=== PATIENT | female | born 1970 ===

== ENCOUNTER → 2024-06-09 10:20 | Outpatient (REF) | payer BC, SELFPAY | LOC: RAD 10:20 | PROVIDERS: ATTENDING PHYSICIAN Internal Medicine Cardiovascular Disease; FAMILY PHYSICIAN Family Medicine | DX: R73.03 Prediabetes (principal); R00.2 Palpitations; R94.39 Abnormal result of other cardiovascular function study; Z82.49 Family history of ischemic heart disease and other diseases of the circulatory system; I10 Essential (primary) hypertension | CPT/HCPCS: 75574; Q9967 ==

== ENCOUNTER 2025-10-10 17:39 | Emergency (ER) | payer BC, SELFPAY ==
[2025-10-10 17:50] VITALS: BP 144/96
[2025-10-10 18:39] LABS: ALT (SGPT) 26 U/L (0-35); AST (SGOT) 26 U/L (14-36); Albumin 4.8 g/dl (3.5-5.0); Alkaline Phosphatase 111 U/L (38-126); Blood Urea Nitrogen 13 mg/dl (7-17); Calcium 9.2 mg/dl (8.4-10.2); Carbon Dioxide 22 mmol/L (22-30); Chloride 107 mmol/L (98-107); Glucose 92 mg/dl (70-99); Lipase 155 U/L (23-300); Potassium 3.9 mmol/L (3.5-5.1); Sodium 137 mmol/L (135-145); Total Protein 7.8 g/dl (6.3-8.2); eGFR > 60.00
[2025-10-10 19:05] LABS: Troponin I 0.013 ng/ml
[2025-10-10 20:09] VITALS: BP 145/89
--- NOTE | 2025-10-10 20:17 | ED.GENMED ---
History of Present Illness
General
Chief Complaint: Chest Pain
Source: patient
Time Seen by Provider: 10/10/25 20:05
History of Present Illness
History of Present Illness:
This patient is a 55-year-old female who presents emergency department complaints of a 'tightness' in the left anterior chest that started this morning while she was at her desk at work. Is continued throughout the day, on and off, sometimes going
away completely, sometimes returning, and she was lasting seconds at a time now lasting minutes at a time. It got particular worse around 15 p.m. which prompted her visit here. She denies any pain at this time and states the last time she had it
was while she was in the waiting room. She denies fever, leg swelling, estrogen use, recent immobilization, recent trauma, history of DVT in her family members. The pain is not pleuritic in nature. She has very mild shortness of breath. She also
has chills and an occasional cough.
Past History
Past History
ED Past Medical History: HTN and Hypercholesterolemia
Social History
Tobacco: Non-smoker
Alcohol: Occasional
Drug: None
Living: alone
Employment: Employed
Phy Exam
Physical Exam
Physical Exam:
GENERAL: Alert , in no apparent distress
EYE: pupils equal and reactive
NECK: Supple, no significant adenopathy.
ENT: o/p clr, mmm.
CARDIAC: Regular rate and rhythm .
LUNGS: Clear breath sounds bilaterally, no acute respiratory distress, no wheezes/rales/rhonchi
ABDOMEN: Soft, without focal tenderness, no r/g, no cvat
NEUROLOGICAL: Alert and oriented, no focal neuro deficits
SKIN: Warm and dry, skin intact.
MUSCULOSKELETAL: No edema, well perfused.
PSYCH: Normal and appropriate interaction.
Scores
Heart Score for Chest Pain Patients
STEMI patient?: No
History: Slightly or Non-Suspicious
ECG: Normal
Age: >45 - <65 years
Risk Factors: 1 or 2 Risk Factors
Troponin: </= Normal Limit
Heart Score for Chest Pain Patients: 2
Heart Score Risk: 2.5% MACE over next 6 weeks
Course
Orders/Labs/Results
Orders:
Orders
10/10/25 17:40
Electrocardiogram (*1) Urgent
Reason for Study: Chest Pain
EKG- Treatment ONCE
10/10/25 18:17
Comprehensive Metabolic Panel Urgent
Lipase Urgent
Troponin I Urgent
10/10/25 20:39
Ketorolac [Toradol] 15 mg IV NOW STA
CR Chest - 2 Views Urgent
Comment:
Reason For Exam: cp
10/10/25 20:54
Complete Blood Count/With Diff Urgent
Troponin I Urgent
10/10/25 22:27
Acetaminophen [Tylenol] 1,000 mg .ROUTE .STK-MED ONE
10/10/25 22:28
Acetaminophen [Tylenol] 1,000 mg PO NOW STA
Abnormal Lab Results
10/10/25
20:54
RBC 4.18 L 10^6/uL
(4.20-5.40)
Hgb 11.6 L g/dL
(12.0-16.0)
Hct 36.6 L %
(37.0-47.0)
MCHC 31.7 L g/dL
(33.0-37.0)
Absolute Neuts (auto) 7.3 H 10^3/uL
(1.4-6.5)
Absolute Lymphs (auto) 0.9 L 10^3/uL
(1.2-3.4)
Neutrophils % 81.0 H %
(42.2-75.2)
Lymphocytes % 10.0 L %
(20.5-51.1)
10/10/25 20:54
10/10/25 18:17
Vital Signs
Initial and Last Documented VS:
Initial Vital Signs
Temp Pulse Resp BP
98.6 F 91 16 144/96
10/10/25 17:50 10/10/25 17:50 10/10/25 17:50 10/10/25 17:50
Last Documented Vital Signs
Temp Pulse Resp BP Pulse Ox
99.5 F 92 20 121/77 97
10/10/25 22:08 10/10/25 22:08 10/10/25 22:08 10/10/25 22:08 10/10/25 22:08
*Pulse Oximetry
Patient hypoxic: no
*Critical Care Note
Total Time (30-74mins, 75-104mins- exclusive of procedures): Not Applicable
Update Note
Update Note:
Patient presents to the Emergency Department with ___chest pain
Number and Complexity of Problems Addressed at the Encounter
� Chronic conditions affecting care:
� Acute Exacerbation and/or Progression of Chronic Illness:
� Differential Diagnosis includes: But not limited to pneumonia, pneumothorax, ACS, musculoskeletal, PE, etc. etc.
Amount and/or Complexity of Data to be Reviewed and Analyzed
� I performed an independent evaluation of and my interpretation is:
EKG:read by me, nsr, nl rate, nl axis, no ischemia
CT:
Xrays:read byy me cxr nad
Laboratory Studies:trop times two wnl, labs generally unremkarable
Other:
� Review of other/old records reveals:
� Clinical information was obtained by an independent historian:
� Prescriptions/Medications Considered but not given:
� Further testing considered but not performed:
Risk of Complications and/or Morbidity or Mortality of Patient Management
� Social determinants of health affecting care:
� Discussion with other providers (PCP, Hospitalists, Consultants, etc):
� Escalation of care including admission/observation vs risk of discharge considered: Workup generally unremarkable here, patient remains comfortable and well-appearing. I have a low clinical suspicion for more worrisome event
such as dissection (pain not ripping or tearing in quality, does not radiate to back, not sudden onset, not constant, etc.), PE (not pleuritic, no risk factors identified, etc.) he, etc. etc. Discussed with patient importance of follow-up and
reasons return to the ER.
ED Attending Note
-
Portions of this chart may have been created with voice recognition software.� Occasional wrong word or��sound alike� substitutions may have occurred due to the inherent limitations of voice recognition software.
Discharge Plan
Departure
Patient Disposition: Home (Routine Discharge)
Date of Disposition: 10/10/25
Time of Disposition: 21:59
Patient with high blood pressure during this ER visit?: Yes
Condition: Good
Discharge Problem:
Chest pain
Instructions: Chest Pain PCP Follow Up, BLOOD PRESSURE
Prescriptions:
No Action
valsartan 320 mg Tablet
320 mg PO DAILY
rosuvastatin
10 mg PO DAILY
Referrals:
NONE,* [Family Provider, Internal Medicine]
Activity Restrictions/Additional Instructions:
IF YOU DEVELOP NEW WORSENING OR PERSISTENT PAIN, ANY TROUBLE BREATHING, SWELLING, VOMITING, GET WORSE, DO NOT GET BETTER, OR OTHER WORRISOME SIGNS, PLEASE RETURN TO THE ER IMMEDIATELY EXCLAMATION
Interventions
Interventions:
*Risk Screen - Suicide Last Done: 10/10/25 17:42
*General Assessment Last Done: 10/11/25 00:15
*Neglect/Abuse Screening Last Done: 10/10/25 17:50
*ED COVID-19 Vaccine History Last Done: 10/10/25 17:50
*ED Influenza Vaccine History Last Done: 10/10/25 17:50
*Nursing Disposition Last Done: 10/10/25 22:55
ED- Cardiac Assessment Last Done: 10/10/25 20:32
Discharge Date and Time
Discharge Date/Time: 10/10/25 22:45
Print Language: [place]
[2025-10-10 20:31] VITALS: BMI 27.5
[2025-10-10] MEDS: TORADOL 15 MG IV (20:55)
[2025-10-10 21:08] LABS: Hematocrit 36.6 % (37.0-47.0); Hemoglobin 11.6 g/dL (12.0-16.0); Mean Corp Hgb Conc. 31.7 g/dL (33.0-37.0); Mean Corpuscular Volume 87.6 fL (81.0-99.0); Nucleated Red Blood Cells % 0 %; Platelet Count 263 10^3/uL (130-400); Red Cell Dist. Width 12.2 % (11.5-14.5)
[2025-10-10 21:33] LABS: Troponin I < 0.012 ng/ml
[2025-10-10 21:50] VITALS: BP 121/75
[2025-10-10 21:51] VITALS: BP 121/75
[2025-10-10 22:08] VITALS: BP 121/77
[2025-10-10] MEDS: TYLENOL 1000 MG PO (22:28)
== END 2025-10-10 22:45 | disposition home or self-care (01) ==
LOC: EMR 17:39
PROVIDERS: Emergency Medicine; EMERGENCY PHYSICIAN Emergency Medicine; REFERRING PHYSICIAN Internal Medicine Cardiovascular Disease
DX: R07.9 Chest pain, unspecified (principal); R05.9 Cough, unspecified; I10 Essential (primary) hypertension; E78.00 Pure hypercholesterolemia, unspecified
CPT/HCPCS: 96374; 99285; 71046; 80053; 83690; 84484; 85025; 93005